=== PATIENT | male | born 1985 | race Caucasian/White ===

== ENCOUNTER 2017-08-09 13:52 | Emergency (ER) | payer OTHER ==
[~2017-08-09] VITALS: Ht 193 cm; Wt 102.5 kg
[2017-08-09 14:39] LABS: ADD MIUA? NO; BILIRUBIN NEGATIVE; BLOOD NEGATIVE; COLOR YELLOW ((YELLOW)); GLUCOSE (STRIP) NEGATIVE; KETONES NEGATIVE; LEUKOCYTES NEGATIVE; NITRITE NEGATIVE; PROTEIN (STRIP) NEGATIVE; SPECIFIC GRAVITY 1.016 (1.000-1.030); UCUL ADDED? NO; UROBILINOGEN 0.2 MG/DL (0.2-1.0)
[2017-08-09 15:00] LABS: HEMATOCRIT 46.6 % (38.0-50.0); MCH 30.6 PG (29.0-34.0); MCHC 33.9 G/DL (30.0-36.0); MCV 90.1 FL (86-99); MEAN PLAT.VOLUME 9.5 uM^3 (9.0-12.4); PLATELET COUNT 302 K/uL (156-360); RBC DIS.WIDTH-CV 12.7 % (11.8-14.6); RBC DIS.WIDTH-SD 42.1 % (39-53); RED BLOOD COUNT 5.17 M/uL (4.00-5.50); WHITE BLOOD COUNT 9.9 K/uL (4.1-10.2)
[2017-08-09 15:10] LABS: CHLORIDE 105 mEq/L (99-109); POTASSIUM 4.4 mEq/L (3.7-5.4); SODIUM 140 mEq/L (136-147)
[2017-08-09 15:12] LABS: GLUCOSE 92 mg/dL (70-99)
[2017-08-09 15:13] LABS: ANION GAP 10 MEQ/L (2-14)
[2017-08-09 15:14] LABS: TOTAL BILIRUBIN 0.5 mg/dL (0.0-1.0)
[2017-08-09 15:16] LABS: ALKALINE PHOSPHATASE 70 IU/L (3-129); GFR ESTIMATE (CALCULATED) > 59 mL/min/
[2017-08-09 15:17] LABS: UREA NITROGEN (BUN) 12 mg/dL (9-23)
[2017-08-09 16:22] LABS: LIPASE 9 U/L (1.0-51.0)
[2017-08-09 18:50] VITALS: BP 128/70
== END 2017-08-09 18:51 | disposition home or self-care (01) ==
LOC: EME 13:52
DX: K29.20 Alcoholic gastritis without bleeding (principal); F10.988 Alcohol use, unspecified with other alcohol-induced disorder; F17.200 Nicotine dependence, unspecified, uncomplicated
CPT/HCPCS: 80053; 81003; 83690; 85027; 99281; 99284

== ENCOUNTER 2018-04-02 14:15 | Emergency (ER) | payer OTHER ==
[~2018-04-02] VITALS: Ht 193 cm; Wt 103.3 kg
[2018-04-02 14:48] VITALS: BP 155/86
== END 2018-04-02 17:39 | disposition home or self-care (01) ==
LOC: EME 14:15
PROC: 3E0234Z Introduction of Serum, Toxoid and Vaccine into Muscle, Percutaneous Approach (ICD-10-PCS; principal; 2018-04-02)
DX: S60.511A Abrasion of right hand, initial encounter (principal); W55.03XA Scratched by cat, initial encounter; Z20.3 Contact with and (suspected) exposure to rabies; Z23 Encounter for immunization; Y99.0 Civilian activity done for income or pay; Y92.89 Other specified places as the place of occurrence of the external cause
CPT/HCPCS: 99281; 99283

== ENCOUNTER 2018-06-04 12:25 | Emergency (ER) | payer OTHER ==
[~2018-06-04] VITALS: Ht 193 cm; Wt 102.3 kg
[2018-06-04] MEDS ORDERED: AUGMENTIN875 MG PO (13:15)
[2018-06-04 14:08] VITALS: BP 142/80
== END 2018-06-04 14:13 | disposition home or self-care (01) ==
LOC: EME 12:25
PROC: 3E0234Z Introduction of Serum, Toxoid and Vaccine into Muscle, Percutaneous Approach (ICD-10-PCS; principal; 2018-06-04)
DX: S60.311A Abrasion of right thumb, initial encounter (principal); W55.01XA Bitten by cat, initial encounter; Y99.0 Civilian activity done for income or pay; Z23 Encounter for immunization; Z20.3 Contact with and (suspected) exposure to rabies
CPT/HCPCS: 99281; 99283